=== PATIENT | male | born 1995 | race Caucasian/White ===

== ENCOUNTER 2019-12-22 17:55 | Emergency (ER) | payer SELFPAY | END 2019-12-22 18:07 | disposition left against medical advice (07) | PROVIDERS: Emergency Provider Nurse Practitioner | DX: Z53.21 Procedure and treatment not carried out due to patient leaving prior to being seen by health care provider (principal) | CPT/HCPCS: 99199 ==

== ENCOUNTER 2020-08-19 09:02 | Emergency (ER) | payer OTHER, SELFPAY ==
--- NOTE | ~2020-08-19 | XR_ITS ---
EXAMINATION: XR chest 2V DATE: 08/19/2020 10:21 INDICATION: Cough TECHNIQUE: PA and lateral views of the chest are obtained. COMPARISON: 11/09/2018 FINDINGS: The lungs are free of acute opacities. There is no pleural effusion or pneumothorax. The ca rdiomediastinal silhouette is normal. The visualized bones and soft tissues are unremarkable. IMPRESSION: 1. No acute cardiopulmonary abnormality. Reviewed, dictated and finalized at location B.
[2020-08-19 09:47] VITALS: BP 138/84; PULSE 88; RESP 16; TEMP 37.3; O2SAT 99
--- NOTE | 2020-08-19 10:21 | ED.URI ---
HPI - URI/Sore Throat General Chief Complaint: Upper Respiratory Infection Stated Complaint: congestion/cough/wheezing/headache Time Seen by Provider: 08/19/20 09:55 Source: patient and RN notes reviewed Mode of arrival: ambulatory Limitations: no limitations History of Present Illness HPI Narrative: Patient presents today with 3-day history of subjective fever, rhinorrhea, headache, sore throat, body aches. He also reports a 8 to 12-week history of nonproductive cough. States the cough started after a previous illness that he tested negative for COVID-19. He has been taking Tylenol and ibuprofen with some relief. Currently rates his sore throat 08/15. Denies history of asthma or COPD. He is a non-smoker. Denies shortness of breath. MD elicited complaint: cough and sore throat Related Data Home Medications Medication Instructions Recorded Confirmed No Home Medications 08/19/20 08/19/20 Allergies Allergy/AdvReac Type Severity Reaction Status Date / Time No Known Allergies Allergy Verified 08/19/20 09:37 Review of Systems Review of Systems: Narrative: CONSTITUTIONAL: Denies chills, or sweats.+ Body aches, subjective fever EYES: Denies visual changes, redness, or discharge. ENT: Denies congestion, or otalgia.+ Rhinorrhea, sore throat CARDIOVASCULAR: Denies chest pain, palpitations, or edema. RESPIRATORY: Denies dyspnea.+ Cough GASTROINTESTINAL: Denies abdominal pain, nausea, vomiting, or diarrhea. GENITOURINARY: Denies dysuria or hematuria. SKIN: Denies rash, itching, or wounds. MUSCULOSKELETAL: Denies back pain, joint pain, or myalgia. NEUROLOGIC: Denies numbness, tingling, or weakness.+ Headache PSYCH: Denies depression or anxiety. [facility] Surgical History Surgical History (Updated 08/19/20 @ 10:23 by Sita Bolanos, MEE, ) Hx of tonsillectomy Social History Social History (Updated 08/19/20 @ 10:23 by Sita Bolanos, [employer], ) Smoking status: Never smoker Gender identity (if verbalized by the patient): Male Comments At time of signature, I have reviewed and agree with nursing past medical, surgical, social and family history unless otherwise noted. Please see nursing chart for further information. There is no relevant family history pertinent to the presenting complaint Exam Narrative: Exam Narrative: GENERAL: Well-appearing, well-nourished, and in no acute distress. HEAD: Normocephalic, atraumatic. EYES: EOMI. No redness or drainage. Conjunctivae normal. ENT: Mucous membranes pink and moist. Nares clear. No rhinorrhea. TMs normal bilaterally. Throat erythematous without edema or exudate. Uvula midline. NECK: Normal AROM. Supple. No lymphadenopathy. CHEST: No respiratory distress. Diminished in the bilateral bases, with one crackle in the left lower lobe. HEART: Regular rate and rhythm. No murmur appreciated. Normal peripheral pulses. EXTREMITIES: Normal range of motion. No edema. SKIN: Warm, dry, no rash. Capillary refill normal. Normal skin turgor. NEURO: No focal deficits. Alert and oriented x3. Gait steady. PSYCH: Normal affect. No signs of depression or anxiety. Course Vital Signs Vital signs: Vital Signs Temperature 99.1 F 08/19/20 09:47 Pulse Rate 88 08/19/20 09:47 Respiratory Rate 16 08/19/20 09:47 Blood Pressure 138/84 08/19/20 09:47 Pulse Oximetry 99 08/19/20 09:47 Temperature 99.1 F 08/19/20 09:47 Pulse Rate 88 08/19/20 09:47 Respiratory Rate 16 08/19/20 09:47 Blood Pressure 138/84 08/19/20 09:47 Pulse Oximetry 99 08/19/20 09:47 Reviewed. Pt has been instructed to follow up with his PCP regarding his elevated blood pressure today. MDM - URI/Sore Throat Differential Diagnosis Differential diagnosis: Likely upper respiratory infection, otitis media, sinusitis, viral infection, bronchitis, pharyngitis and other (Pneumonia, strep throat) Lab Data Attestation: I reviewed the patient's lab results. Labs: Strep Screen
== END 2020-08-19 10:35 | disposition home or self-care (01) ==
PROVIDERS: Emergency Provider Nurse Practitioner; PCP Emergency Medicine
DX: J40 Bronchitis, not specified as acute or chronic (principal); J06.9 Acute upper respiratory infection, unspecified
CPT/HCPCS: 71046; 87081; 87880; 99213; G0463

== ENCOUNTER → 2020-09-09 16:40 | Outpatient (CLI) | payer OTHER, SELFPAY ==
--- NOTE | ~2020-09-09 | XR_ITS ---
EXAMINATION: XR chest 2V DATE: 09/09/2020 16:58 INDICATION: Productive cough. TECHNIQUE: Frontal and lateral views of the chest were obtained. COMPARISON: Chest 2 views 08/19/2020, CT abdomen and pelvis 11/09/2018 FINDINGS: The chest demonstrates clear lungs without pneumonia, pleural effusion, or pneumothorax. Th e heart size is normal. IMPRESSION: 1. No acute cardiopulmonary disease. Reviewed, dictated and finalized at location A.
== END ==
LOC: EXPCRAD 16:43
PROVIDERS: PCP Emergency Medicine; Visit Provider Emergency Medicine
DX: R05 Cough (principal)
CPT/HCPCS: 71046

== ENCOUNTER → 2020-09-12 06:39 | Outpatient (CLI) | payer OTHER, SELFPAY ==
[2020-09-13 14:53] LABS: SARS-CoV-2 RNA PCR Negative
== END ==
PROVIDERS: PCP Emergency Medicine; Visit Provider Emergency Medicine
DX: Z20.822 Contact with and (suspected) exposure to COVID-19 (principal); R05 Cough
CPT/HCPCS: C9803; U0003; U0005